=== PATIENT | female | born 1950 | race Caucasian/White ===

== ENCOUNTER 2023-10-29 08:39 | Outpatient (REF) | payer MEDICARE, BC, SELFPAY ==
--- NOTE | ~2023-10-29 | MR_ITS ---
MRI OF THE BRAIN WITHOUT IV CONTRAST INDICATION: Dizziness. Rule out posterior fossa lesion. COMPARISON: None available. TECHNIQUE: Multiplanar multisequence MR imaging of the brain was obtained without IV contrast. FINDINGS: There is no hydrocephalus, extra-axial surface collection, or herniation. There is global cerebral volume loss and there is mild to moderate chronic microangiopathy. The major flow voids at the skull base are preserved. There is no acute infarct on diffusion-weighted imaging. There is no intracranial hemorrhage on the gradient recalled echo acquisition. The midline structures are normal. The cerebellar tonsils are normally positioned. The cerebellum and brainstem are normal. The craniocervical junction is normal. Osseous marrow signal intensity is homogenous. The visualized soft tissues are unremarkable. MR/MR head/brain wo con IMPRESSION: * No acute intracranial findings. * There is global cerebral volume loss and there is mild to moderate chronic microangiopathy. Electronically signed by: Sharan Rm MD 11/27/2023 05:57 AM EDT RP
== END 2023-10-29 08:40 | disposition home or self-care (01) ==
LOC: HO.MRI 08:39
PROVIDERS: PCP Nurse Practitioner Gerontology; Visit Provider Psychiatry & Neurology Neurology
DX: R42 Dizziness and giddiness (principal)
CPT/HCPCS: 70551

== ENCOUNTER 2023-11-07 10:13 | Outpatient (REF) | payer MEDICARE, BC, SELFPAY ==
[2023-11-07 12:28] LABS: Erythrocyte Sedimentation Rate 12 MM/HR (0-20)
[2023-11-07 12:31] LABS: Anion Gap 11 (12-20); Blood Urea Nitrogen 15 mg/dL (9-16); Calcium 10.2 mg/dL (8.4-10.2); Carbon Dioxide 29 mmol/L (22-29); Chloride 105 mmol/L (96-108); Estimated Glomerular Filt Rate 49; Glucose Random 78 mg/dL (60-115); Sodium 140 mmol/L (135-145)
[2023-11-08 12:14] LABS: Lyme Abs Screen <0.90 index
[2023-11-14 12:54] LABS: Anti Nuclear Antibody Pattern Nuclear, Speckled; Anti Nuclear Antibody Screen POSITIVE (NEGATIVE)
== END 2023-11-07 10:14 | disposition home or self-care (01) ==
LOC: HO.LAB 10:13
PROVIDERS: PCP Nurse Practitioner Gerontology; Visit Provider Psychiatry & Neurology Neurology
DX: G37.9 Demyelinating disease of central nervous system, unspecified (principal)
CPT/HCPCS: 36415; 80048; 85652; 86038; 86039; 86617; 86618

== ENCOUNTER 2024-10-20 13:51 | Outpatient (AMB) | payer MEDICARE, BC, SELFPAY ==
--- NOTE | 2024-10-20 13:53 | MHC.OFFVIS ---
Intake Visit Reasons: 6 months / DD Accompanied by: Spouse Allergies amoxicillin Allergy (Unknown, Verified 10/15/24 08:42) Unknown doxycycline Allergy (Unknown, Verified 10/15/24 08:42) Unknown Medication List - Last Reconciled 10/20/24 by Shania Gambino CNP buspirone 5 mg PO TID meclizine 25 mg PO BEDTIME PRN sertraline 25 mg PO DAILY HPI Comments Details: She fell down last stair while carrying laundry and broke her R ankle in 07/2024. Wearing walking boot. Balance was about the same overall, no falls otherwise. Memory was about the same, some days better than others. Forgetful at times. No significant dizziness and has not needed meclizine. She was following with psychiatrist [employer] and therapist. Mood was okay, up and down. She had a bout of vertigo around 2021 where the room would spin every time she laid back down or sat up. She was treated with vestibular therapy and was fine for a year until 03/2023 when the symptoms recurred. She was again treated with otolith repositioning and vestibular therapy and did okay. She went on a cruise in April 2023 and got a sinus infection, and then started to feel dizzy again with a feeling of being off balance and insecure when she walks. She has gotten a little bit better and there is no vertigo anymore, but she feels like she is not fully in control. She also feels that there are some memory lapses. She has a lot of anxiety and panic that ever since her father . No hearing problems. No strokelike symptoms. Her mother had dementia in her 70s and lived into her 90s. [facility] Medical History (Updated 10/20/24 @ 14:00 by Shania Gambino CNP) Demyelinating disease of central nervous system Memory change Anxiety Review of Systems Const Denies chills, Denies daytime sleepiness, Denies difficulty sleeping, Reports fatigue, Denies fever(s), Denies frequent falls, Denies headache(s), Denies increased appetite, Denies poor appetite, Denies snoring, Denies weakness, Denies weight gain and Denies weight loss Eyes Denies loss of vision ENT Denies vertigo, Reports dizziness, Denies headache(s) and Reports neck pain Card Denies chest pain at rest, Denies chest pain with activity, Denies syncope, Denies leg edema, Denies palpitations, Denies dyspnea and Denies dyspnea on exertion Resp Denies cough, Denies dyspnea, Denies dyspnea on exertion and Denies snoring GI Denies abdominal pain, Denies constipation, Denies heartburn, Denies diarrhea and Denies nausea Denies urinary frequency, Denies urinary incontinence and Denies urinary urgency Musc Reports abnormal gait (Balance difficulty), Denies back pain, Denies myalgias, Denies arthralgias, Reports neck pain, Denies numbness and Denies tingling Neuro Reports abnormal gait (Balance difficulty), Denies vertigo, Reports dizziness, Denies syncope, Denies frequent falls, Denies headache(s), Denies lack of coordination, Denies loss of vision, Reports memory loss, Denies numbness, Denies Other visual disturbances, Denies restless legs, Denies seizure-like activity, Denies tingling, Denies paresthesias, Denies tremor(s) and Denies weakness Psych Reports anxiety, Reports depression, Denies auditory hallucinations, Reports memory loss and Denies visual hallucinations Endo Reports fatigue and Denies palpitations Physical Exam Const Other: General Appearance:? normal, in no acute distress. Heart:? S1, S2 normal, no murmurs. Lungs:? clear anteriorly and posteriorly. Musculoskeletal:? normal. Extremities:? no edema. Psych:? alert, oriented, cognitive function intact, cooperative with exam. Neuro Other: Abnormal Neurological Findings:?none.? Mental Status: alert and oriented X 3. Normal attention, orientation, memory, and affect. Cranial Nerves: Pupils are equal, round, and reactive to light. External ocular muscles are intact. Visual mayen are full, no ptosis. Face is symmetrical, no facial weakness or droop. Facial sensations are normal. Tongue protrudes in midline. Palate elevates symmetrically. Shoulder shrugging is normal Motor Examination: Normal muscle tone, bulk and strength. No atrophy or fasciculations. No drift of the extended upper extremities. DTR 2+. Plantars are flexor. Straight Leg Raisin degrees. Sensory Exam: Normal light touch, temperature, pinprick, vibration, and joint-position sensations. Rhomberg sign is absent. Coordination: No ataxia. No titubation. [id number]-ti-yrjz, [id number] test, and rapid alternating movements were normal. Gait Exam: Within normal limits. R foot walking boot. Cerebellar Signs: [id number] and xblg-[id number]-axxw is normal. No dysdiadochokinesia. Extrapyramidal System: No tremor, rigidity with normal facial expressions. No bradykinesia. No bradyphrenia. Normal arm swing and posture. No propulsion or retropulsion. Speech: Normal. No dysphasia or dysarthria. Results Reviewed Results Reviewed: 11/23 MRI shows multiple white matter lesions , too numerous to count in subcortical deep white matterand periventricular distribution and mild volume loss and enlargement of vents. GIANCARLO: Bilateral anterior optic pathway abnormality, right worse than left. BLESSING, USER and LSER normal Labs: DANII 1:1280 nuclear speckled pattern. Rest normal. Assessment & Plan Assessment & Plan (1) Demyelinating disease of central nervous system: Code(s): G37.9 - Demyelinating disease of central nervous system, unspecified Category: Medical Plan: MRI brain with and without contrast ordered. (2) Dizziness: Code(s): R42 - Dizziness and giddiness Category: Medical Plan: Continue meclizine 25mg 1 tablet at bedtime as needed. (3) Memory change: Code(s): R41.3 - Other amnesia Category: Medical Plan: Stay physically and socially active as able. Orders: Orders MR head/brain wo/w con Today G37.9 - Demyelinating disease of central nervous system, unspecified Medications: New meclizine 25 mg PO BEDTIME PRN 30 tabs 3RF dizziness 30 days Coding Level of Care Code Est Pt Level 4 (83143) Diagnoses Demyelinating disease of central nervous system G37.9 Dizziness R42 Memory change R41.3
--- OUTSIDE RECORDS SUMMARY | 2024-10-20 14:40 | XMS_ITS | Continuity of Care Document ---
Author Organization [place] - [facility], [facility] Address [address] [address] Care Team Providers Care Bearing Grinder Name Role Phone GLORIA GORMAN Referring Provider [phone] Assessment Encounter Date Assessment Date Assessment LastModified by Organization Details LastModified Time 10/15/2024 10/15/2024 A: Pt denied pain with therex performed. Normal gait mechanics ambulating on level surfaces in sneaker. Pt was challenged on RB S/S balance. P: Continue per plan of care. Progress as tolerated. [email or web address] Not available 10/15/2024 15:00:24 Plan of Treatment Reminders Order Date Submit Date Provider Last Modified By Organization Details Last Modified Time Details Appointments PT FOLLOW-U P 2024 03:30P M Alea Sung, CUSTOM DRESSMAKER Not available Not available Not available PT FOLLOW-U P 2024 03:30P M Alea Sung, CUSTOM DRESSMAKER Not available Not available Not available RECHECK 15 2024 10:15A M Radha Escobar MD Not available Not available Not available PT FOLLOW-U P 2024 10:30A M Alea Sung, CUSTOM DRESSMAKER Not available Not available Not available PT FOLLOW-U P 2024 03:00P M Gabriel Warren, PT Not available Not available Not available PT FOLLOW-U P 2024 03:00P M Gabriel Warren, PT Not available Not available Not available PT FOLLOW-U P 2024 10:00A M Gabriel Warren, PT Not available Not available Not available PT FOLLOW-U P 2024 02:30P M Alea Sung, CUSTOM DRESSMAKER Not available Not available Not available PT FOLLOW-U P 2024 02:30P M Alea Sung CUSTOM DRESSMAKER Not available Not available Not available Lab None recorded . Referral None recorded . Procedures None recorded . Surgeries None recorded . Imaging None recorded . Medication Orders None recorded . Patient TargetsNo targets recorded. Patient InstructionsNo instructions recorded. Reason for Referral None Reported. Results Created Date Observation Date Name Description Value Unit Range Abnormal Flag Note LastModifiedBy Organization Detail LastModifiedTime 09/27/1909/26/2024 XR, ankle , 3 or more view [email or web address] ?Encry pted=s hAaTro YD8dLq bEUv6g %2BXZw aYqtaq 0bqfl% 2Fg9IQ a4ajBk vP9nXo QUaueC m3YtLR FvZlgJ JJ8mAn HZtai3 8j7996 AC0Kla HWDWaq jKiQtr MwF INTERFACE [facility] [address], [place], [address], 09/26/2024 14:44:10 09/27/19 25 09/26/2024 XR, ankle , 3 or more view [email or web address] ?Encry pted=s hAaTro YD8dLq bEUv6g %2BXZw aYqtaq 0bqfl% 2Fg9IQ a4ajBk vP9nXo QUaueC m3YtLR FvZlgJ JJ8mAn HZtai3 4f2876 AC0Kla HWDWaq jKiQtr MwF INTERFACE [facility] [address], [place], [address], 09/26/2024 14:44:12 Result Notes None recorded. Problems Name Problem SNOMED Code Status Onset Date Resolution Date Notes Provider Name and Address Organization Details Recorded Time Cervical spondylosis 648349507 Active 2023 Lata Alcantar, CUSTOM DRESSMAKER [address], [place], [address] , [facility] 4 17:05:14 History of operation on musculoskelet al system 714813828 [facility] 5 15:45:03 Closed bimalleolar fracture 57678472 Active 2024 Nola Mendosa PA-C [address], [place], [address] , [facility] 5 19:38:02 Problem Notes None recorded. Procedures Surgical History Date Name Laterality Status Provider Name and Address Organization Details Recorded Time 10/14/19 45719 Therapeutic Exercise (1:1) completed Alea Sung, CUSTOM DRESSMAKER [address], [place], [address], [facility] 10/13/2024 13:45:41 10/14/19 62436: Manual therapy completed Alea Sung, CUSTOM DRESSMAKER [address], [place], [address], [facility] 10/13/2024 13:45:55 10/11/19 25 08678 Therapeutic Exercise (1:1) active Gabriel Warren, PT [address], [place], [address], [facility] 10/09/2024 13:57:04 10/11/19 25 03783: Low complexity PT Eval active Gabriel [facility] [address], [place], [address], [facility] 10/09/2024 13:57:14 10/11/19 25 G8421 BMI Not Calculated, Reason Not Specified or[facility] [address], [place], [address], [facility] 10/09/2024 13:57:29 10/11/19 25 G8427 Current Medication Documented orquidea [facility] [address], [place], [address], [facility] 10/09/2024 13:57:23 08/22/19 25 Splint_Short Leg Plaster_11+ completed Esther Craven [facility] 08/21/2024 14:02:29 08/12/19 25 Splint_Short Leg Plaster_11+ completed Nicolcisco Bolaños [facility] 08/11/2024 14:13:51 12/17/19 75553 Therapeutic Exercise (1:1) completed Lata Alcantar PTA [address], [place], [address], [facility] 12/17/2023 11:37:34 12/17/19 65906: Manual therapy completed Lata Alcantar PTA [address], [place], [address], [facility] 12/17/2023 11:40:22 12/13/19 12559 Therapeutic Exercise (1:1) completed Kika Cuello DPT [address], [place], [address], [facility] 12/13/2023 10:35:24 12/13/19 88713: Manual therapy completed Kika Cuello DPT [address], [place], [address], [facility] 12/13/2023 10:35:15 12/10/19 60965 Therapeutic Exercise (1:1) completed Lata Alcantar PTA [address], [place], [address], [facility] 12/10/2023 10:05:46 12/10/19 17167: Manual therapy completed Lata Alcantar PTA [address], [place], [address], [facility] 12/10/2023 10:04:03 11/30/19 22014 Therapeutic Exercise (1:1) cancelled Lata Alcantar PTA [address], [place], [address], [facility] 11/28/2023 14:55:59 11/30/19 61501: Manual therapy cancelled Lata Alcantar PTA [address], [place], [address], [facility] 11/28/2023 14:55:59 11/08/19 02093 Therapeutic Exercise (1:1) completed Kika Cuello DPT [address], [place], [address], [facility] 11/08/2023 08:49:57 11/08/19 67638: Manual therapy completed Kika Cuello DPT [address], [place], [address], [facility] 11/08/2023 08:43:56 11/06/19 23707 Therapeutic Exercise (1:1) completed Kika Cuello DPT [address], [place], [address], [facility] 11/06/2023 08:29:27 11/06/19 52781: Manual therapy completed Kika Cuello DPT [address], [place], [address], [facility] 11/06/2023 09:09:31 11/01/19 21161 Therapeutic Exercise (1:1) completed Lata Alcantar PTA [address], [place], [address], [facility] 10/31/2023 17:00:02 11/01/19 24 84640: Manual therapy completed Lata Alcantar PTA [address], [place], [address], [facility] 11/01/2023 16:50:11 10/30/19 46134 Therapeutic Exercise (1:1) completed Lata Alcantar PTA [address], [place], [address], [facility] 10/30/2023 19:23:50 10/30/19 24 46200: Manual therapy completed Lata Zubenko, CUSTOM DRESSMAKER [address], [place], [address], [facility] 10/30/2023 19:23:08 10/03/19 24 89336 Therapeutic Exercise (1:1) completed Kika Cuello DPT [address], [place], [address], [facility] 10/03/2023 11:44:53 10/03/19 24 18478: Manual therapy completed Kika Cuello DPT [address], [place], [address], [facility] 10/03/2023 10:55:14 10/01/19 24 41388 Therapeutic Exercise (1:1) completed Kika Cuello DPT [address], [place], [address], [facility] 10/01/2023 15:12:10 10/01/19 24 32741: Low complexity PT Eval completed Kika Cuello DPT [address], [place], [address], [facility] 10/01/2023 15:12:54 10/01/19 24 G8419 BMI Outside Normal Parameters, F/U not Documented completed Kika Cuello DPT [address], [place], [address], [facility] 10/01/2023 17:30:58 10/01/19 24 G8427 Current Medication Documented completed Kika Cuello DPT [address], [place], [address], [facility] 10/01/2023 17:31:04 Imaging Results None recorded. Procedure Notes None recorded. Medical Equipment None Reported. Allergies Allergen ID Allergen Name Allergen Category Reaction Reaction Severity Criticality Documentation Date Start Date Code Code System Note Provider Name and Address Organization Details Recorded Time 977864 doxycycli ne hyclate medicatio n Not available Not available Not available 06/04/20232003 63157 RxNorm Aller gyRea ction : 'Naus ea/Vo mitin g/Naa rrhea '; Not Available [facility] 4 15:26:00 891129 amoxicill in medicatio n Not available Not available Not available 09/18/2023 723 RxNorm ARLENE murphy [place] - [facility] 4 08:57:24 Medications Name Sig Start Date Stop Date Status Note LastModified by Organization Details LastModified Time buspirone 5 mg tablet TAKE 1 TABLET BY MOUTH TWICE A DAY active Not Available Not Available No t Available tizanidine 2 mg tablet TAKE 1 TABLET NEEDED BY ORAL ROUTE AT BEDTIME FOR 28 DAYS, FOR MUSCLE SPASMS. active Not Available Not Available No t Available azithromycin 250 mg tablet TAKE 2 TABLETS BY MOUTH ON FIRST DAY, THEN ONE TABLET DAILY FOR 4 DAYS active Not Available Not Available No t Available aspirin 325 mg tablet TAKE 1 TABLET BY MOUTH EVERY DAY active Not Available Not Available No t Available fluconazole 150 mg tablet TAKE 1 TABLET BY MOUTH ONCE active Not Available Not Available N ot Available meclizine 12.5 mg tablet TAKE 2 TABLETS BY MOUTH DAILY AT BEDTIME FOR 14 DAYS NEEDED FOR DIZZINESS active Not Available Not Available No t Available aspirin 81 mg tablet,delay ed release TAKE 1 TABLET BY MOUTH 2 TIMES A DAY FOR 14 DAYS DO NOT EXCEED 48 CAPSULES IN 24 HOURS active Not Available Not Available No t Available tramadol 50 mg tablet TAKE 1 TABLET BY MOUTH EVERY 6 HOURS NEEDED FOR PAIN ALLOWED TO DISPENSE LESSER QUANTITY active Not Available Not Available No t Available triamcinolon e acetonide 0.1 % topical cream PLEASE SEE ATTACHED FOR DETAILED DIRECTIONS active Not Available Not Available N ot Available terbinafine HCl 250 mg tablet TAKE 1 TABLET BY MOUTH EVERY DAY FOR 3 MONTHS active Not Available Not Available No t Available alprazolam 0.25 mg tablet TAKE 1/2 TO 1 TABLET DAILY NEEDED AXIETY/MEGAN C active Not Available Not Available No t Available lorazepam 0.5 mg tablet TAKE 1 TABLET BY MOUTH 2 TIMES A DAY FOR 14 DAYS active Not Available Not Available Not Available meclizine 25 mg tablet TAKE 1 TABLET BY MOUTH EVERY DAY AT BEDTIME FOR 30 DAYS active Not Available Not Available No t Available econazole nitrate 1 % topical cream APPLY TWICE DAILY TO RASH X 4 WEEKS. active Not Available Not Available No t Available erythromycin 5 mg/gram (0.5 %) eye ointment APPLY 0.5 INCHES TO THE LEFT EYE DIRECTED 4 TIMES DAILY. active Not Available Not Available No t Available tobramycin 0.3 % eye drops INSTILL 1 DROP INTO BOTH EYES 4 TIMES A DAY active Not Available Not Available Not Available buspirone 10 mg tablet TAKE 1/2 TABLET BY MOUTH 3 TIMES A DAY active Not Available Not Available Not Available sertraline 25 mg tablet TAKE 1 TABLET BY MOUTH EVERY DAY IN THE EVENING active Not Available Not Available No t Available hydroxychlor oquine 200 mg tablet TAKE 1 TABLET BY MOUTH EVERY DAY active Not Available Not Available No t Available cefuroxime axetil 500 mg tablet TAKE 1 TABLET BY MOUTH TWICE A DAY FOR 10 DAYS active Not Available Not Available No t Available morphine 15 mg immediate release tablet TAKE 0.5 TABLET BY MOUTH EVERY 6 HOURS,X7 DAYS NEEDED FOR PAIN active Not Available Not Available No t Available sertraline 50 mg tablet TAKE 1/2 TABLET BY MOUTH DAILY FOR 30 DAYS active Not Available Not Available Not Available itraconazole 100 mg capsule TAKE 2 TABS BY MOUTH EVERY DAY X 3 MONTHS active Not Available Not Available No t Available amoxicillin 875 mg-potassium clavulanate 125 mg tablet TAKE 1 TABLET BY MOUTH EVERY 12 HOURS FOR 10 DAYS active Not Available Not Available Not Available oxycodone 5 mg tablet TAKE 1 TABLET BY MOUTH EVERY 6 HOURS NEEDED FOR 5 DAYS active Not Available Not Available No t Available escitalopram 10 mg tablet TAKE 1 TABLET (10 MG) BY MOUTH EVERY DAY AT BEDTIME active Not Available Not Available No t Available escitalopram 20 mg tablet TAKE 1 TABLET BY MOUTH EVERY DAY active Not Available Not Available No t Available bupropion HCl XL 300 mg 24 hr tablet, extended release TAKE 1 TABLET BY MOUTH EVERY DAY active Not Available Not Available No t Available Effexor Effexor 75MG Tablet as directed 2003 active Statu s: 'Curr ent'; Not Available Not Available Not Available Vitals None Recorded Social History None recorded. Functional Status None recorded. Mental Status None recorded. Family History Nothing Reported. Medical History Condition Response Coronary Artery Disease N Anxiety/Depression N Emphysema N COPD N Pacemaker N Vascular Disease N Heart Trouble N Gastrointestinal Disease N Autoimmune disease N Orthotics N Arthritis N Blood Clot N Acid Reflux (GERD) N Cancer N Stroke N Circulation Problems N Rheumatoid Arthritis N Arrhythmia N Headaches N Fibromyalgia N Allergies/Hayfever N Breathing or lung disorders N Nerve Disorders N Thyroid Problems N Kidney/Bladder Problems N Anemia N Heart Attack (DC) N Cholesterol N Diabetes N Bleeding Disorder N Seizures/Epilepsy N AIDS/HIV N Congestive Heart Failure (CHF) N Asthma N Peripheral Vascular Disease N Sleep Apnea N Hepatitis N Heart Disease N Pulmonary Embolism N Hypertension N Osteoporosis N Gynecological HistoryNo gynecological history recorded. Obstetrics History GPAL:G 0 P 0 0 0 0 Past Encounters Encounter ID Performer Location Encounter Start Date Encounter Closed Date Diagnosis/Indication Diagnosis SNOMED-CT Code Diagnosis ICD10 Code Diagnosis Note [id number] MD [facility] [address] [facility] [place] [address] 09/26/2024 14:17:59 10/13/2024 14:16:01 Closed bimalleolar fracture 09212176 S82.841D Ankle pain 739438502 M25 .023 [id number] Alea Sung, CUSTOM DRESSMAKER [facility] [address] [place] [address] 10/13/2024 12:22:12 10/13/2024 13:46:46 Closed bimalleolar fracture 42718516 S82.841D [id number] Alea Sung CUSTOM DRESSMAKER [facility] [address] [place] [address] 10/15/2024 12:19:59 10/15/2024 17:15:28 Closed bimalleolar fracture 75119786 S82.841D Health Concerns Section Related Observation LastModified by Organization Detai ls LastModified Time None Recorded Concern Status LastModified by Organization Details LastModified Time None Recorded Payers Encounter Date Sequence Insurance Name Policy Number Policy Lopez Covered Member ID Lopez Member ID Guarantor Name 10/15/2024 1 [place] [employer] [employer] Lorne Kamara [id number] Lorne Kamara 10/15/2024 2 [facility] [employer] Kamar Ford [id number] Lorne Kamara Notes Date Note Type Note Provider Name and Address Organization Details Recorded Time 10/15/2024 text/html Pt reports that she has no pain. I walk around barefoot at night and it doesn't hurt. Alea Sung, CUSTOM DRESSMAKER [address], [place], [address], [facility] 10/15/2024 15:01:06 OBGyn Episode No OBEpisode recorded.
== END 2024-10-20 14:18 | disposition home or self-care (01) ==
LOC: HO.HSM 13:51
PROVIDERS: PCP Nurse Practitioner Gerontology; Visit Provider Registered Nurse
DX: G37.9 Demyelinating disease of central nervous system, unspecified (principal); R42 Dizziness and giddiness; R41.3 Other amnesia
CPT/HCPCS: 99214

== ENCOUNTER → 2024-10-20 13:51 | Outpatient (BNVA) | payer MEDICARE, BC, SELFPAY | PROVIDERS: PCP Nurse Practitioner Gerontology; Visit Provider Registered Nurse | DX: R41.3 Other amnesia (principal); R42 Dizziness and giddiness; G37.9 Demyelinating disease of central nervous system, unspecified; Z79.899 Other long term (current) drug therapy | CPT/HCPCS: 99212 ==

== ENCOUNTER → 2024-11-25 08:14 | Outpatient (BNV) | payer MEDICARE, BC, SELFPAY | PROVIDERS: Visit Provider Radiology Diagnostic Radiology | DX: G37.9 Demyelinating disease of central nervous system, unspecified (principal) | CPT/HCPCS: 70553 ==

== ENCOUNTER 2024-11-25 08:27 | Outpatient (REF) | payer MEDICARE, BC, SELFPAY ==
--- NOTE | ~2024-11-25 | MR_ITS ---
CLINICAL HISTORY: G37.9 - Demyelinating disease of central nervous system, unspecified MR Brain with and without gadolinium Comparison: MR/SR - MR BRAIN WITHOUT IV CONTRAST - 10/29/23 09:25 EDT Findings: No restricted diffusion. No intra-axial mass or hemorrhage. Age appropriate cerebral volume loss. Patchy high FLAIR signal within the periventricular and subcortical white matter. No midline shift. No hydrocephalus. Vascular flow voids are intact. Orbital contents are unremarkable. The sinuses and mastoid air cells are clear. No focal bone lesion. IMPRESSION: No acute findings. This document has been electronically signed by: Ady Welch MD on 11/25/2024 16:56:40
== END 2024-11-25 08:28 | disposition home or self-care (01) ==
LOC: HO.MRI 08:27
PROVIDERS: Visit Provider Registered Nurse
DX: G37.9 Demyelinating disease of central nervous system, unspecified (principal)
CPT/HCPCS: 70553; A9585

== ENCOUNTER 2025-01-19 13:37 | Outpatient (REF) | payer MEDICARE, BC, SELFPAY ==
[2025-01-19 16:48] LABS: Folate 12.2 ng/mL (> or = 4.0); Vitamin B12 655 pg/mL (200-900)
[2025-01-23 22:28] LABS: ABETA 42/40 Ratio 0.181 (> OR = 0.170); Alzeheimer's Interpretation Low Likelihood; Alzeimer's Disease Score 0.1481; Tau protein phosphorylated 217 0.29 pg/mL (< OR = 0.15)
== END 2025-01-19 13:38 | disposition home or self-care (01) ==
LOC: HO.LAB 13:37
PROVIDERS: PCP Nurse Practitioner; Visit Provider Registered Nurse
DX: G37.9 Demyelinating disease of central nervous system, unspecified (principal); G31.84 Mild cognitive impairment of uncertain or unknown etiology; R42 Dizziness and giddiness; Z79.899 Other long term (current) drug therapy
CPT/HCPCS: 36415; 82233; 82234; 82607; 82746; 84393; 84443; 99212

== ENCOUNTER 2025-01-19 13:37 | Outpatient (AMB) | payer MEDICARE, BC, SELFPAY ==
--- NOTE | 2025-01-19 13:42 | A.OFFVIS_ITS ---
Intake Visit Reasons: 3 MO FU Accompanied by: Spouse Allergies amoxicillin Allergy (Unknown, Verified 01/19/25 13:49) Unknown doxycycline Allergy (Unknown, Verified 01/19/25 13:49) Unknown Medication List - Last Reconciled 01/19/25 by Shania Gambino CNP buspirone 5 mg PO TID meclizine 25 mg PO BEDTIME PRN 30 days sertraline 25 mg PO DAILY HPI Comments Details: She fell walking down stairs in 07/2024 and broke R ankle which required surgical repair. Almost done with PT. No further falls. Imbalance is about the same. More forgetful and gets frustrated at times when she can't remember. Tried to do some forms for taxes which she has always done, but got stuck and started crying. Mood was not so good, down at times, and was not sure if medications were helping. She works with therapist about every 3 weeks. She has appointment for neuropsych testing next month. She thought sleep was okay, but her noted that she was waking few times during the night. She was tired during the day. Her PCP apparently ordered sleep study which has not been done yet. Forgetfulness. Mother had dementia in her 70s, lived into 90s. Balance generally stable, but varies. After a picnic on a hot day, her balance was a lot worse. She had a bout of vertigo around 2021 every time she laid back down or sat up, the room would spin. She was treated with vestibular therapy and was fine for a year till March 2023 when the symptoms recurred. She was again treated with otolith repositioning and vestibular therapy and did okay. She went on a cruise in April 2023 and got a sinus infection and then started to feel dizzy again with a feeling of being off balance and insecure when she walks. She's gotten a little bit better and there is no vertigo anymore but she feels like she is not fully in control. She also feels that there is some memory lapses. She has a lot of anxiety and panic that ever since her father . No hearing problems. No strokelike symptoms. [facility] Medical History (Updated 01/19/25 @ 14:00 by Shania Gambino CNP) Demyelinating disease of central nervous system Memory change Anxiety Family History (Updated 01/19/25 @ 13:48 by Shania Gambino CNP) Mother Dementia Review of Systems Const Denies chills, Denies daytime sleepiness, Denies difficulty sleeping, Reports fatigue, Denies fever(s), Denies frequent falls, Denies headache(s), Denies increased appetite, Denies poor appetite, Reports snoring, Denies weakness, Denies weight gain and Denies weight loss Eyes Denies loss of vision ENT Denies vertigo, Reports dizziness, Denies headache(s) and Reports neck pain Card Denies chest pain at rest, Denies chest pain with activity, Denies syncope, Denies leg edema, Denies palpitations, Denies dyspnea and Denies dyspnea on exertion Resp Denies cough, Denies dyspnea, Denies dyspnea on exertion and Reports snoring GI Denies abdominal pain, Denies constipation, Denies heartburn, Denies diarrhea and Denies nausea Denies urinary frequency, Denies urinary incontinence and Denies urinary urgency Musc Denies abnormal gait, Denies back pain, Denies myalgias, Denies arthralgias, Reports neck pain, Denies numbness and Denies tingling Neuro Denies abnormal gait, Denies vertigo, Reports dizziness, Denies syncope, Denies frequent falls, Denies headache(s), Denies lack of coordination, Denies loss of vision, Reports memory loss, Denies numbness, Denies Other visual disturbances, Denies restless legs, Denies seizure-like activity, Denies tingling, Denies paresthesias, Denies tremor(s), Denies weakness and Reports other (balance difficulty) Psych Reports anxiety, Reports depression, Denies auditory hallucinations, Reports memory loss and Denies visual hallucinations Endo Reports fatigue and Denies palpitations Physical Exam Const Other: General Appearance:? normal, in no acute distress. Heart:? S1, S2 normal, no murmurs. Lungs:? clear anteriorly and posteriorly. Musculoskeletal:? normal. Extremities:? no edema. Psych:? alert, as below. Neuro Other: Abnormal Neurological Findings:?MMSE 22/30 Mental Status: alert, as below. Cranial Nerves: Pupils are equal, round, and reactive to light. External ocular muscles are intact. Visual mayen are full, no ptosis. Face is symmetrical, no facial weakness or droop. Facial sensations are normal. Tongue protrudes in midline. Palate elevates symmetrically. Shoulder shrugging is normal Motor Examination: Normal muscle tone, bulk and strength. No atrophy or fasciculations. No drift of the extended upper extremities. DTR 2+. Plantars are flexor. Sensory Exam: Normal light touch, temperature, pinprick, vibration, and joint- position sensations. Rhomberg sign is absent. Coordination: No ataxia. No titubation. Gait Exam: Within normal limits. Cerebellar Signs: [id number] is okay. Extrapyramidal System: No tremor, rigidity with normal facial expressions. No bradykinesia. No bradyphrenia. Normal arm swing and posture. No propulsion or retropulsion. Speech: Normal. MMSE Level of Consciousness: Alert. Orientation: Knows correct year, month, and season. Does not know date or day. Knows correct city, county and state. Knows correct location and floor. Registration: Able to register 3 objects. Attention: Serial 7's performed accurately to 93. Recall: Able to recall 1 out of 3 objects. Language: Normal spontaneous speech, fluency, repetition, naming, comprehension, reading, and writing. Total Score: 22/30. Results Reviewed Results Reviewed: [address] [address] Magnetic Resonance Report Signed Patient: Lorne Kamara MR#: [id number] : 1950 Acct:[id number] Age/Sex: 74 / F ADM Date: 11/25/24 Loc: .MRI Attending Dr: Shania Gambino CNP Ordering Physician: Shania Gambino CNP Date of Service: 11/25/24 Procedure(s): MR head/brain wo/w con Accession Number(s): [id number] cc: Physician,Unknown ; Shania Gambino CNP~ CLINICAL HISTORY: G37.9 - Demyelinating disease of central nervous system, unspecified MR Brain with and without gadolinium Comparison: MR/SR - MR BRAIN WITHOUT IV CONTRAST - 10/29/23 09:25 EDT Findings: No restricted diffusion. No intra-axial mass or hemorrhage. Age appropriate cerebral volume loss. Patchy high FLAIR signal within the periventricular and subcortical white matter. No midline shift. No hydrocephalus. Vascular flow voids are intact. Orbital contents are unremarkable. The sinuses and mastoid air cells are clear. No focal bone lesion. IMPRESSION: No acute findings. This document has been electronically signed by: Ady Welch MD on 11/25/2024 16:56:40 -- 11/23 MRI shows multiple white matter lesions, too numerous to count in subcortical deep white matterand periventricular distribution and mild volume loss and enlargement of vents. GIANCARLO: Bilateral anterior optic pathway abnormality, right worse than left. BLESSING, USER and LSER normal Labs: DANII 1:1280 nuclear speckled pattern. Rest normal. Assessment & Plan Assessment & Plan (1) Demyelinating disease of central nervous system: Code(s): G37.9 - Demyelinating disease of central nervous system, unspecified Category: Medical Plan: MRI results reviewed. (2) Dizziness: Code(s): R42 - Dizziness and giddiness Category: Medical Plan: Continue meclizine 25mg 1 tablet at bedtime. (3) MCI (mild cognitive impairment): Code(s): G31.84 - Mild cognitive impairment of uncertain or unknown etiology Category: Medical Plan: She was here with her . They were most concerned with forgetfulness and were asking about testing available. She was concerned about possibility of dementia as her mother had dementia in her 70's. Reviewed labs ordered. She had appointment for neuropsych testing in 01/2025 and she was asked to have copy of report sent to office. Stay physically and socially active. Continue working with therapist. Orders: Orders TSH reflex Free T4 Today G31.84 - Mild cognitive impairment of uncertain or unknown etiology ABeta 42/40 p-tau 217 Eval Today G31.84 - Mild cognitive impairment of uncertain or unknown etiology Vitamin B12 and Folate Today G31.84 - Mild cognitive impairment of uncertain or unknown etiology Coding Level of Care Code Est Pt Level 4 (32023) Diagnoses Demyelinating disease of central nervous system G37.9 Dizziness R42 MCI (mild cognitive impairment) G31.84
== END 2025-01-19 14:10 | disposition home or self-care (01) ==
LOC: HO.HSM 13:38
PROVIDERS: PCP Nurse Practitioner Gerontology; Visit Provider Registered Nurse
DX: G37.9 Demyelinating disease of central nervous system, unspecified (principal); R42 Dizziness and giddiness; G31.84 Mild cognitive impairment of uncertain or unknown etiology
CPT/HCPCS: 99214